=== PATIENT | female | born 1945 | race Caucasian/White ===

== ENCOUNTER 2024-12-11 15:15 | Emergency (ER) | payer OTHER ==
--- NOTE | 2024-12-11 17:07 | RAD REPORT ---
EXAM: Hand Right 2 View HISTORY: PAIN COMPARISON: None FINDINGS: Bones: No acute fracture identified. Alignment:No significant malalignment. Degenerative changes:Mild degenerative changes are present at the base of the thumb. Moderate degener ative changes are present the STT joint. Scattered degenerative changes at the MCP joints and interphalangeal joints. Other: n/a IMPRESSION: No evidence of acute osseous abnormality involving the imaged hand.
--- NOTE | 2024-12-11 17:26 | RAD REPORT ---
EXAMINATION: CT MAXILLOFACIAL WITHOUT CONTRAST CLINICAL INDICATION: Female, 79 years old. fall, PLEASE DO THIS WITHOUT CONTRAST;Pain TECHNIQUE: Axial images were obtained through the facial bones and orbits without intravenous contras t. Sagittal and coronal reconstructions were created from the data. One or more of the following dose reduction techniques were used: Automated exposure control, adjustment of the mA and/or kV accor ding to patient size, and/or iterative reconstruction. Unless otherwise specified, incidental findings do not require dedicated imaging follow-up. [id number]. COMPARISON: No prior exam. FINDINGS: SOFT TISSUE: No significant abnormalities. BONES: No evidence of fracture, dislocation, or aggressive osseous lesions. No lesion of the visuali zed skull base or calvarium. ORBITS: The globes are intact. No intraorbital hemorrhage or mass. SINUSES: Trace left maxillary sinus thickening. BRAIN: No acute abnormalities in the visualized intracranial structures. IMPRESSION: No facial fracture identified.
--- NOTE | 2024-12-11 18:07 | EDPHYS ---
Physician Documentation [facility] Name: Carri Garcia Age: 79 yrs Sex: Female : 1945 Arrival Date: 12/11/2024 Time: 15:15 Bed 9 Private MD: ED Physician Diamante Taylor HPI: 12/11 18:07 This 79 yrs old Female presents to ER via Wheelchair with complaints of Fall gb1 Injury, Facial Injury, Hand Injury. 18:10 79-year-old female who has back porch and hit her face on 3 days ago. She also broke gb1 her fall with her right hand and she has got tenderness there as well. She is not on any blood thinners and did not have a head strike and there is no she is on no blood thinning medications and had a front facial head strike without any loss of consciousness. She denies bloody nose or any other complications since the event.. Historical: - Allergies: 15:29 muscle relaxers; ap3 - PMHx: 15:29 Hypertensive disorder; Diabetes mellitus; ap3 - Immunization history:: Client reports having NOT received the Covid vaccine. Last tetanus immunization: not immunized. - Infectious Disease History:: Denies. - Social history:: Smoking status: Patient denies any tobacco usage or history of. Exam: 18:07 Head/Face: Patient with contusions and hematomas in multiple stages of healing. She gb1 has a frontal right forehead hematoma and a healing laceration in the center of her nasal bridge. Patient is also tender inferior orbital he on the right and the left. Chest/axilla: Normal chest wall appearance and motion. Nontender with no deformity. No lesions are appreciated. Cardiovascular: Regular rate and rhythm with a normal S1 and S2. No gallops, murmurs, or rubs. Normal PMI, no JVD. No pulse deficits. Respiratory: Lungs have equal breath sounds bilaterally, clear to auscultation and percussion. No rales, rhonchi or wheezes noted. No increased work of breathing, no retractions or nasal flaring. Abdomen/GI: Soft, non-tender, with normal bowel sounds. No distension or tympany. No guarding or rebound. No evidence of tenderness throughout. Back: No spinal tenderness. No costovertebral tenderness. Full range of motion. MS/ Extremity: Pulses equal, no cyanosis. Neurovascular intact. Full, normal range of motion. Patient has a right dorsal hand contusion where it is tender over the third fourth and fifth MCPs. Normal range of motion. No obvious deformity. Vital Signs: 15:26 BP 130 / 64; Pulse 72; Resp 18; Temp 98.2; Pulse Ox 98% ; Weight 81.65 kg; Height 5 ft. ap3 2 in. ; Pain 0/10; 15:26 Body Mass Index 32.92 (81.65 kg, 157.48 cm) ap3 15:26 Pain Scale: Adult ap3 MDM: 15:47 Medical Screening Exam initiated gb1 18:07 Data reviewed: radiologic studies, CT scan. gb1 18:10 ED course: This 79-year-old female with frontal facial contusion and a right hand gb1 contusion. No intracranial acute findings on the CT maxillofacial. No facial bone fracture or any signs of a subdural hematoma or skull fracture. Patient had no LOC and this likely mechanical fall. She has had no deformity in the right hand and she is not having any pain or range of motion difficulties. I will discharge her home with return precautions and also instructions for home safety regarding falls.. 12/11 16:40 Order name: Hand Right 2 View XRAY; Complete Time: 17:28 gb1 12/11 16:45 Order name: Facial Bones W/ Mpr; Complete Time: 17:28 EDMS Administered Medications: No medications were administered Disposition Summary: 12/11/24 18:07 Discharge Ordered Notes: Location: Home gb1 Problem: new gb1 Symptoms: have improved gb1 Condition: Stable gb1 Diagnosis - Abrasion of right hand gb1 - Contusion of eyeball and orbital tissues, right eye gb1 - Fall (on) (from) other stairs and steps gb1 Followup: gb1 - With: Private Physician - When: - Reason: Worsening of condition Discharge Instructions: - Discharge Summary Sheet gb1 - Fall Prevention in the Home, Adult gb1 - Facial or Scalp Contusion, [id number] gb1 Forms: - Medication Reconciliation Form gb1 - Antibiotic Education gb1 - Prescription Opioid Use gb1 - Patient Portal Instructions gb1 - Leadership Thank You Letter gb1 Signatures: Dispatcher [employer] EDKori Cardoso RN RN ap3 Diamante Taylor MD MD gb1 Corrections: (The following items were deleted from the chart) 16:45 16:40 Maxillofacial W/Wo+[id number] ordered. EDMS EDMS
--- NOTE | 2024-12-11 18:07 | ER ---
Nurse's Notes [facility] Name: Carri Garcia Age: 79 yrs Sex: Female : 1945 Arrival Date: 12/11/2024 Time: 15:15 Bed 9 Private MD: Diagnosis: Abrasion of right hand;Contusion of eyeball and orbital tissues, right eye;Fall (on) (from) other stairs and steps Presentation: 12/11 15:26 Chief complaint: Patient states: she fell Saturday12/06/24 onto concrete. patient reports ap3 hitting her face, hands and knees. patients presents to the ED with bruising to her face hands and knees. patient denies any LOC or blood thinners. Coronavirus screen: At this time, the client does not indicate any symptoms associated with coronavirus-19. Ebola Screen: No symptoms or risks identified at this time. Initial Sepsis Screen: Does the patient meet any 2 criteria? No. Patient's initial sepsis screen is negative. Does the patient have a suspected source of infection? No. Patient's initial sepsis screen is negative. Risk Assessment: Do you want to hurt yourself or someone else? Patient reports no desire to harm self or others. Onset of symptoms was December 06, 2024. 15:26 Method Of Arrival: Wheelchair ap3 15:26 Acuity: GATO 2 ap3 Triage Assessment: 15:30 General: Appears in no apparent distress. Behavior is calm, cooperative, appropriate ap3 for age. Pain: Complains of pain in face, right hand and left hand. Neuro: Level of Consciousness is awake, alert, obeys commands, Oriented to person, place, time, situation, Appropriate for age. Cardiovascular: Patient's skin is warm and dry. Respiratory: Airway is patent Respiratory effort is even, unlabored, Respiratory pattern is regular, symmetrical. Derm: Bruising that is dark purple, green, yellow, on face, right hand, left hand, right leg and left leg. Historical: - Allergies: 15:29 muscle relaxers; ap3 - PMHx: 15:29 Hypertensive disorder; Diabetes mellitus; ap3 - Immunization history:: Client reports having NOT received the Covid vaccine. Last tetanus immunization: not immunized. - Infectious Disease History:: Denies. - Social history:: Smoking status: Patient denies any tobacco usage or history of. Screenin:31 Abuse screen: Denies threats or abuse. Nutritional screening: No deficits noted. ap3 Tuberculosis screening: No symptoms or risk factors identified. Vital Signs: 15:26 BP 130 / 64; Pulse 72; Resp 18; Temp 98.2; Pulse Ox 98% ; Weight 81.65 kg; Height 5 ft. ap3 2 in. ; Pain 0/10; 15:26 Body Mass Index 32.92 (81.65 kg, 157.48 cm) ap3 15:26 Pain Scale: Adult ap3 ED Course: 15:22 Patient arrived in ED. mr 15:29 Diamante Taylor MD is Attending Physician. gb1 15:29 Triage completed. ap3 15:31 Arm band placed on left wrist. ap3 16:56 Hand Right 2 View XRAY In Process Unspecified. EDMS 17:09 Facial Bones W/ Mpr In Process Unspecified. EDMS Administered Medications: No medications were administered Outcome: 18:07 Discharge ordered by . gb1 18:31 Patient left the ED. hb Signatures: Dispatcher [employer] EDMS Joyce Craven, Reg Reg Cuca Irizarry, RN RN Kori Clay RN RN ap3 Diamante Taylor MD MD gb1
[2024-12-11 19:09] VITALS: BP 130/64; TEMP 98.2; O2SAT 98
== END 2024-12-11 18:31 | disposition home or self-care (01) ==
LOC: ER 15:15
DX: S60.511A Abrasion of right hand, initial encounter (principal); S05.11XA Contusion of eyeball and orbital tissues, right eye, initial encounter; W10.8XXA Fall (on) (from) other stairs and steps, initial encounter
CPT/HCPCS: 70486; 76377; 99281